=== PATIENT | female | born 1955 | race Caucasian/White ===

== ENCOUNTER 2020-03-13 06:44 | Outpatient (CLI) | payer MEDICARE, OTHER ==
[2020-03-13 18:56] LABS: #Basophils 0.1 thou/uL (0.0-0.2); #Eosinphils 0.1 thou/uL (0.0-0.7); #Lymphocytes 2.5 thou/uL (1.20-3.40); #Monocytes 0.5 thou/uL (0.11-0.59); #Neutrophils 2.4 thou/uL (1.40-6.50); %Basophils 1.5 % (0.0-1.0); %Eosinophils 2.7 % (0.0-10.0); %Lymphocytes 44.9 % (21.0-51.0); %Monocytes 8.4 % (0.0-10.0); %Neutrophils 42.5 % (42.0-75.0); Band 2 % (5-11); Eosinophils 1 % (0-10); Hemoglobin 9.7 g/dL (12.0-16.0); Lymphocytes 43 % (21-51); MDiff Complete? YES; Mean Corpuscular HGB CONC 29.3 g/dL (32.0-36.0); Mean Corpuscular Volume 68.3 fL (78.0-98.0); Mean Platelet Volume 11.2 fL (7.4-10.4); Microcytosis SLIGHT = 6-15 cells (100X) (0-5/hpf); Monocytes 6 % (0-10); Ovalocytes SLIGHT = 2-5 cells (100X) (0-1/hpf); Platelet Count 400 thou/uL (130-400); Reactive Lymphocytes 5 % (0-10); Red Blood Cell (RBC) Count 4.86 mill/uL (4.20-5.40); Schistocytes SLIGHT = 2-5 cells (100X) (0-1/hpf); White Blood Cell (WBC) Count 5.5 thou/uL (4.8-10.8)
[2020-03-13 23:56] LABS: AST (SGOT) 30 U/L (5-34); Albumin 4.4 g/dL (3.4-4.8); Alkaline Phosphatase 59 U/L (40-110); Anion Gap 14 mmol/L (10-20); BUN (Urea Nitrogen) 10 mg/dL (9.8-20.1); Bilirubin, Total 0.4 mg/dL (0.2-1.2); Calc. Creatinine Clearance 0 mL/min (70-130); Carbon Dioxide 26 mmol/L (23-31); Chloride 101 mmol/L (98-107); Estimated GFR-MDRD 84; Globulin 2.6 g/dL (2.4-3.5); Glucose 79 mg/dL (80-115); Potassium 3.5 mmol/L (3.5-5.1); Sodium 137 mmol/L (136-145)
[2020-03-14 00:01] LABS: ALT (SGPT) 21 U/L (8-55); Calcium 9.6 mg/dL (7.8-10.44)
--- NOTE | 2020-03-14 10:30 | EKG ---
Test Reason : Blood Pressure : / mmHG Vent. Rate : 058 BPM Atrial Rate : 058 BPM P-R Int : 184 ms QRS Dur : 098 ms QT Int : 446 ms P-R-T Axes : 072 -27 055 degrees QTc Int : 437 ms Sinus bradycardia with sinus arrhythmia Nonspecific T wave abnormality Abnormal ECG No previous ECGs available Confirmed by PREETI GARCIA M.D. ([id number] on 03/14/2020 10:30:27 AM Referred By: RADHA Confirmed By:PREETI GARCIA M.D.
[2020-03-14 13:01] LABS: SARS-CoV-2 MS2 Positive; SARS-CoV-2 N Gene Negative; SARS-CoV-2 S Gene Negative; SARS-CoV-2 by NAA Not Detected (NotDetected); SARS-CoV-2 orf1ab Negative
== END 2020-03-13 06:45 | disposition home or self-care (01) ==
LOC: LABBT 06:44
PROVIDERS: ATTEND Internal Medicine Cardiovascular Disease
DX: Z01.818 Encounter for other preprocedural examination (principal); Z20.828 Contact with and (suspected) exposure to other viral communicable diseases; R94.39 Abnormal result of other cardiovascular function study
CPT/HCPCS: 80053; 85025; 93005; U0003; 87635; 93010

== ENCOUNTER 2020-03-16 07:50 | Day surgery (SDC) | payer MEDICARE ==
[2020-03-14 09:36] VITALS: BMI 23.9
[2020-03-16 09:11] LABS: Cardiac Risk 2.3 (Less than 4.5)
[2020-03-16] MEDS ORDERED: Iopamidol 370 76% 100 ML VIAL ONE (09:25)
[2020-03-16] MEDS ORDERED: Lidocaine 1% (PF) 30 ML VIAL ONE (12:30)
[2020-03-16] MEDS ORDERED: Fentanyl 100 MCG/2 ML VIAL ONE (12:40)
[2020-03-16] MEDS ORDERED: Midazolam HCl 2 mg/2 ml Vial ONE (12:40)
== END 2020-03-16 15:44 | disposition home or self-care (01) ==
LOC: SDC 07:50
PROVIDERS: ATTEND Internal Medicine Cardiovascular Disease
PROC: 4A023N7 Measurement of Cardiac Sampling and Pressure, Left Heart, Percutaneous Approach (ICD-10-PCS; principal; 2020-03-16)
PROC: B2111ZZ Fluoroscopy of Multiple Coronary Arteries using Low Osmolar Contrast (ICD-10-PCS; 2020-03-16)
DX: R94.39 Abnormal result of other cardiovascular function study (principal); I35.0 Nonrheumatic aortic (valve) stenosis; I10 Essential (primary) hypertension; E07.9 Disorder of thyroid, unspecified; Z87.891 Personal history of nicotine dependence; Z79.82 Long term (current) use of aspirin; Z79.899 Other long term (current) drug therapy
CPT/HCPCS: 36415; 80061; 93454; 99152; 99153; J1644; J2001; J2250; J3010; Q9967

== ENCOUNTER 2020-08-28 21:51 | Emergency (ER) | payer MEDICARE ==
[~2020-08-28 21:51] MED LIST: Iopamidol-370 76% 500 ML 1 ML ONE
--- NOTE | 2020-08-28 22:14 | RAD ---
XR Chest 1 View Portable HISTORY: Chest pain COMPARISON: None FINDINGS: The heart size is normal. The aorta is tortuous. The lungs are well expanded without focal areas of consolidation, pneumothorax or pleural effusions. IMPRESSION: No radiographic evidence of acute cardiopulmonary process.
[2020-08-28 22:34] LABS: Hemoglobin 9.6 g/dL (12.0-16.0); Mean Corpuscular HGB CONC 30.8 g/dL (32.0-36.0); Mean Corpuscular Hemoglobin 21.4 pg (27.0-31.0); Mean Corpuscular Volume 69.4 fL (78.0-98.0); Mean Platelet Volume 9.6 fL (7.4-10.4); Platelet Count 355 thou/uL (130-400); RBC Distribution Width 17.6 % (11.5-14.5); Red Blood Cell (RBC) Count 4.48 mill/uL (4.20-5.40); White Blood Cell (WBC) Count 8.1 thou/uL (4.8-10.8)
[2020-08-28 22:48] LABS: #Basophils 0.1 thou/uL (0.0-0.2); #Eosinphils 0.3 thou/uL (0.0-0.7); #Lymphocytes 2.9 thou/uL (1.20-3.40); #Neutrophils 3.8 thou/uL (1.40-6.50); %Basophils 1.1 % (0.0-1.0); %Eosinophils 3.8 % (0.0-10.0); %Lymphocytes 35.7 % (21.0-51.0); %Monocytes 11.9 % (0.0-10.0); %Neutrophils 47.6 % (42.0-75.0); Hypochromia SLIGHT = 6-15 cells (100X) (0-5/hpf); MDiff Complete? YES; Microcytosis SLIGHT = 6-15 cells (100X) (0-5/hpf)
[2020-08-28 22:57] LABS: ALT (SGPT) 24 U/L (8-55); AST (SGOT) 44 U/L (5-34); Albumin 4.2 g/dL (3.4-4.8); Alkaline Phosphatase 58 U/L (40-110); Anion Gap 17 mmol/L (10-20); BUN (Urea Nitrogen) 14 mg/dL (9.8-20.1); Bilirubin, Total 0.2 mg/dL (0.2-1.2); Calc. Creatinine Clearance 0 mL/min (70-130); Calcium 8.8 mg/dL (7.8-10.44); Carbon Dioxide 22 mmol/L (23-31); Chloride 101 mmol/L (98-107); Globulin 3.1 g/dL (2.4-3.5); Glucose 86 mg/dL (80-115); Potassium 4.4 mmol/L (3.5-5.1); Protein, Total 7.3 g/dL (5.8-8.1); Sodium 136 mmol/L (136-145)
[2020-08-28] MEDS ORDERED: Nitroglycerin 0.4 MG TAB 1 EACH ONE (23:08)
--- NOTE | 2020-08-28 23:42 | CT ---
. CT Aortic Dissection Protocol HISTORY: Chest pain radiating to the back, shortness of breath COMPARISON: None. FINDINGS: There is good opacification of the thoracoabdominal aorta without intimal flap or aneurysmal dilatati on. There is good flow in the left renal artery, celiac axis, SMA and SAIDA. There is stenosis at the origin of the right renal artery. No pericardial or pleural effusions are identified. No pneumothoraces, lobar consolidation are noted. There is a 6 mm mohan fissural right lung nodule. No free air or free fluid is seen in the abdomen. There are bilateral renal cysts. The patient is pos t cholecystectomy. Postop changes also seen in the stomach and GE junction. There is a 11 mm cyst in the left lobe of the liver. There are mild degenerative changes in the thoracic lumbar spine. IMPRESSION: No evidence of aortic aneurysm or dissection.
[2020-08-29 02:43] LABS: Troponin I 0.021 ng/mL (< 0.028)
== END 2020-08-29 03:21 | disposition home or self-care (01) ==
LOC: ERS 21:51
DX: R07.2 Precordial pain (principal); E03.9 Hypothyroidism, unspecified; I10 Essential (primary) hypertension; Z79.899 Other long term (current) drug therapy
CPT/HCPCS: 71045; 71275; 74174; 80053; 84484; 85025; 93005; Q9967

== ENCOUNTER 2020-09-26 08:03 | Outpatient (CLI) | payer MEDICARE ==
[2020-09-26 09:36] LABS: Hemoglobin 9.4 g/dL (12.0-15.5); Mean Corpuscular HGB CONC 30.3 g/dL (32.0-36.0); Mean Corpuscular Hemoglobin 20.9 pg (27.0-33.0); Mean Corpuscular Volume 68.9 fl (81.6-98.3); Mean Platelet Volume 10.7 fl (7.4-10.4); Platelet Count 465 10x3/uL (150-450); RBC Distribution Width 19.8 % (11.5-14.5); White Blood Cell (WBC) Count 7.1 10x3/uL (3.5-10.5)
[2020-09-26 09:56] LABS: Large Platelets SLIGHT; Platelet Morphology Comment Appears Adequate
[2020-09-26 09:58] LABS: Anisocytosis SLIGHT = 6-15 cells (100X) (0-5/hpf); Microcytosis SLIGHT = 6-15 cells (100X) (0-5/hpf); Poikilocytosis SLIGHT = 6-15 cells (100X) (0-5/hpf)
[2020-09-26 09:59] LABS: Hypochromia SLIGHT = 6-15 cells (100X) (0-5/hpf); Polychromasia SLIGHT = 2-3 cells (100X) (0-2/hpf); Target Cells SLIGHT = 2-5 cells (100X) (0-1/hpf)
[2020-09-26 10:01] LABS: #Basophils 0.1 10x3/uL (0.0-0.2); #Eosinphils 0.1 10x3/uL (0.0-0.5); #Monocytes 0.6 10x3/uL (0.0-1.1); #Neutrophils 4.8 10x3/uL (1.5-8.4); %Eosinophils 1.4 % (0.0-6.0); %Lymphocytes 21.8 % (18.0-47.0); %Monocytes 7.9 % (0.0-10.0); %Neutrophils 67.8 % (40.0-75.0)
[2020-09-26 10:02] LABS: ALT (SGPT) 23 U/L (8-55); AST (SGOT) 32 U/L (5-34); Albumin 4.6 g/dL (3.4-4.8); Alkaline Phosphatase 59 U/L (40-110); Anion Gap 14 mmol/L (10-20); BUN (Urea Nitrogen) 10 mg/dL (9.8-20.1); Bilirubin, Total 0.4 mg/dL (0.2-1.2); Calc. Creatinine Clearance 0 mL/min (70-130); Calcium 9.6 mg/dL (7.8-10.44); Carbon Dioxide 28 mmol/L (23-31); Chloride 101 mmol/L (98-107); Globulin 2.7 g/dL (2.4-3.5); Glucose 86 mg/dL (80-115); Protein, Total 7.3 g/dL (5.8-8.1); Sodium 139 mmol/L (136-145)
[2020-09-26 21:03] LABS: SARS-CoV-2 PCR by NAA Not Detected (NotDetected)
== END 2020-09-26 08:04 | disposition home or self-care (01) ==
LOC: LABBT 08:03
PROVIDERS: ATTEND Internal Medicine Cardiovascular Disease
DX: Z01.812 Encounter for preprocedural laboratory examination (principal); I35.0 Nonrheumatic aortic (valve) stenosis; Z20.822 Contact with and (suspected) exposure to COVID-19
CPT/HCPCS: 80053; 85025; U0003; U0005; 87635

== ENCOUNTER 2020-09-28 05:47 | Day surgery (SDC) | payer MEDICARE ==
[2020-09-27 14:24] VITALS: BMI 25.7
[2020-09-28] MEDS ORDERED: Lidocaine 1% (PF) 30 ML VIAL ONE (06:54)
[2020-09-28 06:59] LABS: Cardiac Risk 2.4 (Less than 4.5)
[2020-09-28] MEDS ORDERED: Fentanyl 100 MCG/2 ML VIAL ONE (07:45)
[2020-09-28] MEDS ORDERED: Midazolam HCl 2 mg/2 ml Vial ONE (07:45)
[2020-09-28] MEDS ORDERED: Adenosine 6 MG/2 ML VIAL ONE (07:46)
[2020-09-28] MEDS ORDERED: Heparin 10,000 UNITS/ 10 ML VIAL ONE (07:46)
[2020-09-28] MEDS ORDERED: Nitroglycerin 100MG/250ML BOT 0 ML ONE (07:46)
== END 2020-09-28 11:37 | disposition home or self-care (01) ==
LOC: CCL 05:47
PROVIDERS: ATTEND Internal Medicine Cardiovascular Disease
PROC: 4A023N8 Measurement of Cardiac Sampling and Pressure, Bilateral, Percutaneous Approach (ICD-10-PCS; principal; 2020-09-28)
PROC: B2111ZZ Fluoroscopy of Multiple Coronary Arteries using Low Osmolar Contrast (ICD-10-PCS; 2020-09-28)
DX: I35.0 Nonrheumatic aortic (valve) stenosis (principal); I10 Essential (primary) hypertension; E07.9 Disorder of thyroid, unspecified; Z79.82 Long term (current) use of aspirin; Z79.899 Other long term (current) drug therapy; Z87.891 Personal history of nicotine dependence; Z88.8 Allergy status to other drugs, medicaments and biological substances
CPT/HCPCS: 80061; 93460; 93567; 99152; J0153; J1644; J2001; J2250; J3010

== ENCOUNTER 2023-03-14 08:19 | Outpatient (CLI) | payer MEDICARE ==
[2023-03-14 09:35] LABS: #Basophils 0.1 10x3/uL (0.0-0.2); #Eosinphils 0.1 10x3/uL (0.0-0.5); #Monocytes 0.4 10x3/uL (0.0-1.1); #Neutrophils 2.4 10x3/uL (1.5-8.4); %Basophils 2.6 % (0.0-2.0); %Eosinophils 2.8 % (0.0-6.0); %Lymphocytes 27.4 % (18.0-47.0); %Monocytes 9.8 % (0.0-10.0); %Neutrophils 57.2 % (40.0-75.0); Hematocrit 31.3 % (34.9-44.5); Hemoglobin 9.3 g/dL (12.0-15.5); Mean Corpuscular HGB CONC 29.7 g/dL (32.0-36.0); Mean Platelet Volume 10.3 fl (7.4-10.4); Platelet Count 510 10x3/uL (150-450); RBC Distribution Width 20.8 % (11.5-14.5); Red Blood Cell (RBC) Count 4.89 10x6/uL (3.90-5.03); White Blood Cell (WBC) Count 4.3 10x3/uL (3.5-10.5)
[2023-03-14 09:48] LABS: ALT (SGPT) 14 U/L (8-55); AST (SGOT) 28 U/L (5-34); Albumin 4.2 g/dL (3.4-4.8); Alkaline Phosphatase 71 U/L (40-110); Anion Gap 13 mmol/L (10-20); BUN (Urea Nitrogen) 9 mg/dL (9.8-20.1); Bilirubin, Direct 0.2 mg/dL (0.1-0.3); Bilirubin, Total 0.5 mg/dL (0.2-1.2); Calc. Creatinine Clearance 0 mL/min (70-130); Calcium 9.2 mg/dL (7.8-10.44); Carbon Dioxide 26 mmol/L (23-31); Cardiac Risk 2.7 (Less than 4.5); Chloride 103 mmol/L (98-107); Cholesterol 167 mg/dl (< 200 Desired); Estimated GFR 94; Globulin 2.6 g/dL (2.4-3.5); Glucose 88 mg/dL (80-115); HDL Cholesterol 62 mg/dL (>60 Neg Risk); LDL Cholesterol, Calculated 93 mg/dL; Potassium 3.9 mmol/L (3.5-5.1); Protein, Total 6.8 g/dL (5.8-8.1); Sodium 138 mmol/L (136-145); Triglycerides 59 mg/dL (Less than 150)
[2023-03-14 09:52] LABS: Hypochromia SLIGHT = 6-15 cells (100X) (0-5/hpf); Microcytosis MODERATE=15-30 cells (100X) (0-5/hpf); Ovalocytes SLIGHT = 2-5 cells (100X) (0-1/hpf)
[2023-03-14 09:54] LABS: Elliptocytes SLIGHT = 2-5 cells (100X) (0-1/hpf); INR-International Normal Ratio 0.9; Large Platelets SLIGHT (None Seen); PTT 21.6 sec (22.0-33.0); Platelet Adequacy Comment Appears Increased; Prothrombin Time 9.5 sec (9.5-12.1)
[2023-03-14 12:28] LABS: Reflex for Review?? YES
== END 2023-03-14 08:20 | disposition home or self-care (01) ==
LOC: LABBT 08:19
PROVIDERS: ATTEND Internal Medicine Cardiovascular Disease
DX: Z01.818 Encounter for other preprocedural examination (principal); I35.0 Nonrheumatic aortic (valve) stenosis
CPT/HCPCS: 80053; 80061; 80076; 85025; 85060; 85610; 85730; 93005; 93010

== ENCOUNTER 2023-04-19 12:57 | Emergency (ER) | payer MEDICARE ==
[2023-04-19 13:37] LABS: #Basophils 0.1 thou/uL (0.0-0.2); #Eosinphils 0.1 thou/uL (0.0-0.7); #Monocytes 0.6 thou/uL (0.11-0.59); #Neutrophils 6.2 thou/uL (1.40-6.50); %Basophils 0.9 % (0.0-1.0); %Eosinophils 0.7 % (0.0-10.0); %Lymphocytes 13.9 % (21.0-51.0); %Monocytes 7.5 % (0.0-10.0); %Neutrophils 76.8 % (42.0-75.0); Hemoglobin 8.4 g/dL (12.0-16.0); Mean Corpuscular Hemoglobin 19.7 pg (27.0-31.0); Mean Corpuscular Volume 65.7 fl (78.0-98.0); Mean Platelet Volume 10.5 fL (7.4-10.4); Platelet Count 432 10x3/uL (130-400); RBC Distribution Width 21.2 % (11.5-14.5); Red Blood Cell (RBC) Count 4.26 mill/uL (4.20-5.40)
[2023-04-19 14:01] LABS: ALT (SGPT) 12 U/L (8-55); AST (SGOT) 21 U/L (5-34); Albumin 4.4 g/dL (3.4-4.8); Alkaline Phosphatase 75 U/L (40-110); Anion Gap 13 mmol/L (10-20); BUN (Urea Nitrogen) 14 mg/dL (9.8-20.1); Bilirubin, Total 0.3 mg/dL (0.2-1.2); Calc. Creatinine Clearance 0 mL/min (70-130); Calcium 9.2 mg/dL (7.8-10.44); Carbon Dioxide 22 mmol/L (23-31); Chloride 105 mmol/L (98-107); Estimated GFR 94; Globulin 2.6 g/dL (2.4-3.5); Glucose 93 mg/dL (80-115); Potassium 3.8 mmol/L (3.5-5.1); Sodium 136 mmol/L (136-145)
[2023-04-19 14:05] LABS: Troponin I 0.012 ng/mL (< 0.028)
[2023-04-19 14:11] LABS: Burr Cells SLIGHT = 2-5 cells HPF (0-1); CellaVision Operator ID LAB.KB; Hypochromia SLIGHT = 6-15 cells HPF (0-5); Microcytosis MODERATE=15-30 cells HPF (0-5); Ovalocytes SLIGHT = 2-5 cells HPF (0-1); Platelet Adequacy Comment Platelets Increased; Polychromasia SLIGHT = 2-3 cells HPF (0-2); Target Cells SLIGHT = 2-5 cells HPF (0-1)
[2023-04-19] MEDS ORDERED: Morphine 2 MG/ML VIAL ONE (15:03)
[2023-04-19] MEDS ORDERED: Morphine 4 MG/ML VIAL ONE (20:00)
== END 2023-04-19 21:55 | disposition short-term general hospital (02) ==
LOC: ERS 12:57
DX: R07.9 Chest pain, unspecified (principal); E03.9 Hypothyroidism, unspecified; I10 Essential (primary) hypertension
CPT/HCPCS: 36415; 71045; 80053; 84484; 85025; 93005; 96374; 96376; J2270; J2272